=== PATIENT | female | born 1965 | race Caucasian/White ===

== ENCOUNTER → 2016-04-07 | Outpatient (CLI) | payer OTHER ==
--- NOTE | 2016-04-08 09:44 | RADRPT ---
PROCEDURE: I - 123 thyroid uptake and scan CLINICAL INDICATION: 50 -year-old patient with hyperthyroidism. TECHNIQUE: Following the oral administration of 0.19 mCi of I - 123, thyroid uptake and scan was o btained. COMPARISON: No prior thyroid scans. FINDINGS: 6 hours radioiodine uptake is 91 % (normal range is 5% - 20%). 24 hours radioiodine uptake is 92 % (normal range is 7% - 35%). The thyroid gland demonstrates an enlarged thyroid gland (approximately 1.5-2 x normal size) with in creased homogeneous distribution of radionuclide throughout the thyroid gland. IMPRESSION: 1. Enlarged thyroid gland with increased homogeneous distribution of radionuclide. 2. Markedly elevated normal radioiodine uptake. RPTAT: HH .Analisa Gomez MD, Date Time Electronically viewed and signed by .Analisa Gomez MD, on 04/08/2016 09:44 .L/
== END | disposition home or self-care (01) ==
LOC: NUC 09:00
PROVIDERS: ATTEND Internal Medicine
DX: E05.20 Thyrotoxicosis with toxic multinodular goiter without thyrotoxic crisis or storm (principal)
CPT/HCPCS: 78014; A9516